=== PATIENT | male | born 1955 | race American Indian/Alaskan Native ===

== ENCOUNTER 2019-03-15 08:34 | Emergency (ER) | payer OTHER ==
[2019-03-15 09:10] LABS: Basophils % (Auto) 0.2 % (0.0-1.8); Eosinophils # (Auto) 0.1 K/mm3 (0.0-0.4); Eosinophils % (Auto) 1.5 % (0.0-4.3); Hematocrit 41.9 % (35.5-45.6); Hemoglobin 14.2 gm/dl (11.8-15.2); Lymphocytes # (Auto) 2.2 K/mm3 (1.2-5.4); Mean Corpuscular HGB Conc 34 % (32-34); Mean Corpuscular Volume 89 fl (84-94); Monocytes # (Auto) 0.6 K/mm3 (0.0-0.8); Monocytes % (Auto) 7.9 % (0.0-7.3); Red Blood Count 4.71 M/mm3 (3.65-5.03)
[2019-03-15 09:30] LABS: BUN/Creatinine Ratio 15; Blood Urea Nitrogen 18 mg/dL (9-20); Calcium 9.4 mg/dL (8.4-10.2); Hemolysis Index 8
--- NOTE | 2019-03-15 10:06 | XRay Report ---
CHEST 2 VIEWS INDICATION: Chest Pain. COMPARISON: None FINDINGS: Support devices: None. Heart: Within normal limits. Lungs/pleura: No acute air space or interstitial disease. No pneumothorax. Additional findings: None. IMPRESSION: No acute findings. Signer Name: Ambrosio Croft Jr, MD Signed: 03/15/2019 10:02 AM Workstation Name: [id number]
[2019-03-15 10:56] LABS: Platelet Count 246 K/mm3 (140-440)
[2019-03-15] MEDS ORDERED: ZOFRAN IM ONE (13:39)
[2019-03-15] MEDS ORDERED: MORPHINE IM ONE (13:39)
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
--- NOTE | 2019-03-15 16:02 | Cat Scan Report ---
Exam: CT cervical spine History: NECK PAIN; Technique: Contiguous thin cut axial images obtained through the cervical spine. Sagittal and bright l reconstructions performed by the technologist. All CT scans at this location are performed using CT dose reduction for ALARA by means of automated exposure control. Findings: No priors. Cervical lordosis, contour of the vertebral bodies and alignment of the vertebral bodies and articula r facets are normal. Vertebral bodies are normal in height and alignment. I do not see vertebral compression fracture. In the transverse images, I do not see fracture involving the bony canal. C2-C3 disc level: Small midline bulging disc.; Neuroforamina are normal. C3-C4 disc level nonlateralizing midline disc protrusion; neuroforamina are normal At C4-C5 disc level, focal midline disc protrusion; neuroforamina are normal Disc space is narrowed at C5-C6 and C6-C7 disc levels. At C5-C6 disc level broad-based extradural lesion is seen which is a combination of bony spur and sof t disc in the midline. Neuroforamina are normal. At C6-C7 disc level, broad-based extradural lesion is seen which is a combination of bony spur and so ft disc. Normal. At C7-T1 disc level, beam hardening artifacts obscuring details. Broad-based shallow disc protrusion is seen. Large low density lesion is seen in the left lobe of the thyroid measuring approximately 3 cm. Please see the recommendations below Calcification seen in the carotid bifurcations more on the left side. Impression: Neuroforamina are normal Combination of broad-based bony spur and soft disc at C5-C6 and C6-C7 disc levels Focal midline disc protrusions at C4-C5 and C3-C4 disc levels Approximately 3 cm sized left thyroid lobe lesion INCIDENTAL THYROID NODULE RECOMMENDATIONS Nonpalpable nodules detected on US or other anatomic imaging studies are termed incidentally discover ed nodules or incidentalomas. Nonpalpable nodules have the same risk of malignancy as palpable nodule s with the same size. Generally, only nodules >1 cm should be evaluated, since they have a greater po tential to be clinically significant cancers. (PEDRO LUIS, 2009). Follow up for incidental thyroid nodules <1 cm is not recommended. In patients 35 years with an incidental thyroid nodule detected on CT, MRI, or extrathyroidal ultraso und, dedicated thyroid ultrasound is recommended if the nodule is 1.5 cm, has no suspicious imaging f eatures, and if the patient has normal life expectancy. Signer Name: Anastacia Alvarez MD Signed: 03/15/2019 3:58 PM Workstation Name: [id number]
[2019-03-15 16:11] VITALS: BP 157/77
== END 2019-03-15 16:13 | disposition home or self-care (01) ==
LOC: ED 08:34
DX: R07.89 Other chest pain (principal); M54.2 Cervicalgia; M54.12 Radiculopathy, cervical region; I10 Essential (primary) hypertension; E78.00 Pure hypercholesterolemia, unspecified; E11.40 Type 2 diabetes mellitus with diabetic neuropathy, unspecified; Z95.5 Presence of coronary angioplasty implant and graft; Z79.899 Other long term (current) drug therapy; Z88.6 Allergy status to analgesic agent
CPT/HCPCS: 36415; 71046; 72125; 80048; 84484; 85025; 93005; 93010; 96372; 99285; J2270; J2405